=== PATIENT | female | born 1945 | race Caucasian/White ===

== ENCOUNTER 2017-06-04 13:47 | Emergency (ER) | payer MEDICARE, BC ==
[~2017-06-04] VITALS: Ht 175.3 cm; Wt 100.0 kg
[~2017-06-04 13:47] MED LIST: ATORVASTATIN CA10 MG PO; COZAAR100 MG OR; LISINOPRIL20 MG PO; METFORMIN500 M1 PO; NAPROSYN500 MG PO; PERCOCET 5/325M1 TAB OR; PREVACID30 M2 OR; PROTONIX20 M1 PO; VALIUM5 MG OR
[2017-06-04] MEDS ORDERED: NEURONTIN300 MG PO (14:26)
[2017-06-04] MEDS ORDERED: CYMBALTA60 MG PO (14:26)
[2017-06-04] MEDS ORDERED: METFORMIN500 M2 PO (14:28)
[2017-06-04] MEDS ORDERED: EC-NAPROSYN500 MG PO (14:55)
[2017-06-04] MEDS ORDERED: TRAMADOL HYDROC50 MG PO (14:55)
[2017-06-04 15:00] VITALS: BP 139/74
== END 2017-06-04 15:00 | disposition home or self-care (01) ==
LOC: ED 13:47
DX: M25.562 Pain in left knee (principal); I10 Essential (primary) hypertension; E11.9 Type 2 diabetes mellitus without complications

== ENCOUNTER 2020-06-15 09:02 | Day surgery (SDC) | payer MEDICARE, BC ==
[~2020-06-15] VITALS: Ht 175.3 cm; Wt 100.0 kg
[~2020-06-15 09:02] MED LIST changes: +CYMBALTA60 MG PO; +EC-NAPROSYN500 MG PO; +METFORMIN500 M2 PO; +NEURONTIN300 MG PO; +TRAMADOL HYDROC50 MG PO
[2020-06-15 10:13] LABS: HEMATOCRIT 40.1 % (37.0-47.0); HEMOGLOBIN 13.2 g/dl (12.0-16.0); IMMATURE GRANULOCYTES 0.2 % (0.0-5.0); MEAN CORPUSCULAR HGB 30.1 pG CALC (26.0-32.0); MEAN CORPUSCULAR HGB CONC 32.9 g/dL CAL (32.0-36.0); RED BLOOD COUNT 4.38 mill/uL (4.20-5.60)
[2020-06-15 10:16] LABS: MEAN CELL VOLUME 91.6 fL CALC (80.0-100.0)
[2020-06-15] MEDS ORDERED: NORVASC5 M1 PO (10:16)
[2020-06-15] MEDS ORDERED: OMEPRAZOLE10 MG PO (10:18)
[2020-06-15] MEDS ORDERED: PREGABALIN100 MG PO (10:19)
[2020-06-15] MEDS ORDERED: CLINDAMYCIN HC150 MG PO (10:20)
[2020-06-15 10:26] LABS: ALBUMIN 3.8 g/dL (3.2-5.0); ALKALINE PHOSPHATASE 87 u/l (38-126); ANION GAP 13 (6-22 (CALC)); BUN 17 mg/dL (8-23); BUN/CREATININE RATIO 20 (12-20 (CALC)); CARBON DIOXIDE 26 mmol/l (22-30); CHLORIDE 106 mmol/l (95-108); CREATININE 0.9 mg/dL (0.5-1.0); GFR > 60 ML/MIN (>=60 (CALC)); GFR FOR AFR.AMER. > 60 ML/MIN (>=60 (CALC)); POTASSIUM 4.9 mmol/l (3.5-5.1); SGOT/AST 16 u/l (9-36); SODIUM 140 mmol/l (137-146); TOTAL PROTEIN 6.8 g/dL (6.3-8.2)
[2020-06-15 10:27] LABS: BILIRUBIN, TOTAL 0.8 mg/dL (0.0-1.4)
[2020-06-15] MEDS ORDERED: PERCOCET 5/325M1 TAB PO (13:45)
[2020-06-15 13:57] VITALS: BP 154/93
--- NOTE | 2020-06-17 08:21 | NUR ---
WOUND CX RESULTS FAXED TO DR CASTILLO OFFICE
== END 2020-06-15 14:11 | disposition home or self-care (01) ==
LOC: ED 09:02 → ORM 10:16
PROVIDERS: ATTEND Surgery
PROC: 0HBT0ZZ Excision of Right Breast, Open Approach (ICD-10-PCS; principal; 2020-06-15)
DX: N61.1 Abscess of the breast and nipple (principal); E11.9 Type 2 diabetes mellitus without complications; I10 Essential (primary) hypertension; E78.5 Hyperlipidemia, unspecified; B95.61 Methicillin susceptible Staphylococcus aureus infection as the cause of diseases classified elsewhere; Z79.84 Long term (current) use of oral hypoglycemic drugs; Z20.828 Contact with and (suspected) exposure to other viral communicable diseases
CPT/HCPCS: J0131; J1100